=== PATIENT | female | born 1975 | race American Indian/Alaskan Native ===

== ENCOUNTER 2017-04-03 21:19 | Emergency (ER) | payer BC ==
--- NOTE | 2017-04-03 22:42 | Cat Scan Report ---
FINAL REPORT PROCEDURE: CT CERVICAL SPINE WO CON TECHNIQUE: Computerized tomography of the cervical spine was performed from the skull base to T1 without contrast material. HISTORY: fall, pain, midline cervical pain, headache COMPARISON: No prior studies are available for comparison. FINDINGS: There is loss of cervical lordosis C1-2: No significant abnormality. C2-3: No significant abnormality. C3-4: No significant abnormality. C4-5: Mild degree anterior osteophyte formation is identified. Spinal canal and neural foramina are unremarkable. C5-6: No significant abnormality. C6-7: No significant abnormality. C7-T1: No significant abnormality. Other: No additional findings. IMPRESSION: No acute fracture. Straightening of the cervical spine is most likely secondary to spasm .
--- NOTE | 2017-04-03 22:43 | Cat Scan Report ---
FINAL REPORT PROCEDURE: CT HEAD/BRAIN WO CON TECHNIQUE: Computerized tomography of the head was performed without contrast material. HISTORY: fall, pain, dizzy, headache COMPARISON: No prior studies are available for comparison. FINDINGS: Skull and scalp: Normal. Paranasal sinuses: Normal. Ventricles and subarachnoid spaces: Normal. Cerebrum: No evidence of hemorrhage, acute infarction or mass . Cerebellum and brainstem: No evidence of hemorrhage, acute infarction or mass. Vasculature: Normal. Comments: None. IMPRESSION: Normal Examination
[2017-04-04] MEDS ORDERED: TORADOL IM ONE (03:22)
[2017-04-04] MEDS ORDERED: VALIUM PO ONE (03:22)
--- NOTE | 2017-04-04 03:23 | Emergency Department Report ---
ED Neck Pain/Injury HPI - General Chief Complaint: Neck Pain/Injury Stated Complaint: FALL/HEADACHES/NECKPAIN Time Seen by Provider: 04/04/17 02:39 Mode of arrival: Ambulatory Limitations: No Limitations - History of Present Illness Initial Comments: 41-year-old female past medical history none presents with complaint of approximately 3-4 days of bilateral upper shoulder pain radiating to the neck. Patient states she is having sensation of neck stiffness and pain with lateral flexion of her head. Denies any direct trauma within the last week but does state that on March 19 she had a fall and she contused her right shoulder. Patient is awake alert and oriented 3, denies any fevers or chills. Denies any earache denies any dental pain denies any photophobia or phonophobia. States she has had mild headache for which she took some Goody powder. Patient states that she specifically has pain when she shrugs her shoulders or laterally flexes her neck woke up with the pain on Sunday. Denies any upper extremity numbness or tingling rings is fully intact in her upper extremities patient visibly ranging her arms MD Complaint: neck pain Onset/Timin -: days(s) Place: home Radiation: right lateral, left lateral, right shoulder, left shoulder, upper back Severity: moderate Severity scale (0 -10): 6 Quality: aching, other (somewhat spastic sensation) Worsens With: movement of neck Associated Symptoms: none - Related Data Previous Rx's Medication Instructions Recorded Last Taken Type Cyclobenzaprine [Flexeril] 10 mg PO TID PRN #12 tablet 04/04/17 Unknown Rx Ketorolac [Toradol] 10 mg PO Q6H PRN #10 tablet 04/04/17 Unknown Rx Allergies Allergy/AdvReac Type Severity Reaction Status Date / Time oxycodone HCl [From Percocet] Allergy Vomiting Verified 04/03/17 21:41 ED Review of Systems ROS: Stated complaint: FALL/HEADACHES/NECKPAIN Other details as noted in HPI Constitutional: denies: chills, fever Eyes: denies: eye pain, eye discharge, vision change ENT: denies: ear pain, throat pain Respiratory: denies: cough, shortness of breath, wheezing Cardiovascular: denies: chest pain, palpitations Endocrine: no symptoms reported Gastrointestinal: denies: abdominal pain, nausea, diarrhea Genitourinary: denies: urgency, dysuria, discharge Musculoskeletal: as per HPI. denies: back pain, joint swelling, arthralgia Skin: denies: rash, lesions Neurological: denies: headache, weakness, paresthesias Psychiatric: denies: anxiety, depression Hematological/Lymphatic: denies: easy bleeding, easy bruising ED Past Medical Hx - Past Medical History Previous Medical History?: No - Surgical History Past Surgical History?: Yes Additional Surgical History: Myomectomy 2011. c-sec 2006 - Social History Smoking Status: Never Smoker Substance Use Type: None - Medications Home Medications: Home Medications Medication Instructions Recorded Confirmed Last Taken Type Cyclobenzaprine [Flexeril] 10 mg PO TID PRN #12 tablet 04/04/17 Unknown Rx Ketorolac [Toradol] 10 mg PO Q6H PRN #10 tablet 04/04/17 Unknown Rx ED Physical Exam - General Limitations: No Limitations General appearance: alert, in no apparent distress - Head Head exam: Present: atraumatic, normocephalic - Eye Eye exam: Present: normal appearance, PERRL, EOMI - ENT ENT exam: Present: mucous membranes moist - Neck Neck exam: Present: normal inspection, tenderness (patient has reproducible discomfort with palpation of the upper trapezius regions and sternocleidomastoid regions bilaterally), full ROM (range of motion is painful with neck flexion and lateral flexion of neck to both sides) - Respiratory Respiratory exam: Present: normal lung sounds bilaterally. Absent: respiratory distress - Cardiovascular Cardiovascular Exam: Present: regular rate, normal rhythm. Absent: systolic murmur, diastolic murmur, rubs, gallop - GI/Abdominal GI/Abdominal exam: Present: soft, normal bowel sounds - Extremities Exam Extremities exam: Present: normal inspection - Back Exam Back exam: Present: normal inspection - Neurological Exam Neurological exam: Present: alert, oriented X3 - Psychiatric Psychiatric exam: Present: normal affect, normal mood - Skin Skin exam: Present: warm, dry, intact, normal color. Absent: rash ED Course Vital Signs 04/03/17 21:57 Temperature 99.0 F Pulse Rate 90 Respiratory 16 Rate Blood Pressure 121/84 [Right] O2 Sat by Pulse 100 Oximetry ED Medical Decision Making - Medical Decision Making A/P: Torticollis, trapezius muscle spasm 1-patient states she feels moderate to significant relief with dose of Valium and Toradol. Patient states pain went from 9 out of 10-5 out of 10. Patient states that her neck feels much more comfortable 2-will prescribe short course of by mouth Toradol and Flexeril 3-follow up with primary care 4-patient had imaging of the brain and C-spine which were unremarkable Critical care attestation.: If time is entered above; I have spent that time in minutes in the direct care of this critically ill patient, excluding procedure time. ED Disposition Clinical Impression: Neck muscle spasm Strain of trapezius muscle Qualifiers: Encounter type: initial encounter Laterality: unspecified laterality Qualified Code(s): S46.819A - Strain of other muscles, fascia and tendons at shoulder and upper arm level, unspecified arm, initial encounter Disposition: TO HOME OR SELFCARE Is pt being admited?: No Does the pt Need Aspirin: No Condition: Stable Instructions: Muscle Strain (ED), Spasmodic Torticollis (ED) Prescriptions: Cyclobenzaprine [Flexeril] 10 mg PO TID PRN #12 tablet PRN Reason: Muscle Spasm Ketorolac [Toradol] 10 mg PO Q6H PRN #10 tablet PRN Reason: Pain Referrals: SARA CHEUNG MD [Staff Physician] - 3-5 Days Forms: Accompanied Note, Work/School Release Form(ED) Time of Disposition: 04:27
[2017-04-04 05:21] VITALS: BP 130/86
== END 2017-04-04 04:30 | disposition home or self-care (01) ==
LOC: ED 21:19
DX: S46.811A Strain of other muscles, fascia and tendons at shoulder and upper arm level, right arm, initial encounter (principal); S46.812A Strain of other muscles, fascia and tendons at shoulder and upper arm level, left arm, initial encounter; M62.838 Other muscle spasm; Z88.8 Allergy status to other drugs, medicaments and biological substances; W19.XXXA Unspecified fall, initial encounter; Y93.89 Activity, other specified; Y99.8 Other external cause status; Y92.89 Other specified places as the place of occurrence of the external cause
CPT/HCPCS: 36415; 70450; 72125; 84703; 96372; 99284; J1885